=== PATIENT | male | born 1945 | race Two or more races ===

== ENCOUNTER 2018-05-10 18:59 | Emergency (ER) | payer OTHER ==
[~2018-05-10] VITALS: Ht 157.5 cm; Wt 69.9 kg
[2018-05-10] MEDS ORDERED: GABAPENTIN100 MG ORAL (19:10)
[2018-05-10] MEDS ORDERED: HYDRALAZINE HCL10 MG ORAL (19:10)
[2018-05-10] MEDS ORDERED: AMLODIPINE BES2.5 MG ORAL (19:10)
[2018-05-10] MEDS ORDERED: Morphine Sulfate 4mg/ml Inj IVP ONE (19:30)
[2018-05-10] MEDS ORDERED: Gastrograffin 30ml ORAL PRN (19:30)
[2018-05-10] MEDS ORDERED: Isovue-300 100ml vial INJ PRN (19:30)
--- NOTE | 2018-05-10 19:39 | Emergency Room Report ---
History of Present Illness General Chief Complaint: Abdominal Pain Source: Patient, EMS (Chris Beverly M.D.) Present Illness HPI Patient presents with right lower quadrant abdominal pain. He states it's milligram for 6 days. I denies any fevers or chills. He sometimes has pain like this when he has constipation which is frequently. This is more severe at this time. He denies any nausea vomiting. He did pass some stool earlier this morning. Says it was just drops of liquid. He does not make urine anymore. He rates the pain at 9/10 at this time and constant. It radiates somewhat towards his back. The patient is a dialysis patient. He had dialysis earlier today and there were no problems with that. H/O HTN. (Chris Beverly M.D.) Allergies: Coded Allergies: No Known Allergies (Unverified , 05/10/18) Patient History Past Medical History: see triage record Past Surgical History: kenyetta, other - Fistula Social History: Denies: smoking, alcohol use, drug use Social History Narrative with family Reviewed Nursing Documentation: PMH: Agreed; PSxH: Agreed (Chris Beverly M.D.) Nursing Documentation-PMH Hx Hypertension: Yes Hx Diabetes: Yes Hx Dialysis: Yes - MWF (Chris Beverly M.D.) Review of Systems All Other Systems: negative except mentioned in HPI (Chris Beverly M.D.) Physical Exam Vital Signs Date Time Temp Pulse Resp B/P (MAP) Pulse Ox O2 Delivery O2 Flow Rate FiO2 05/10/18 19:04 98.2 71 16 152/69 98 Room Air 98.2 Sp02 EP Interpretation: reviewed, normal General Appearance: well appearing, no apparent distress, GCS 15 Head: normocephalic, atraumatic Eyes: bilateral eye normal inspection, bilateral eye PERRL ENT: moist mucus membranes Neck: supple Respiratory: lungs clear, normal breath sounds Cardiovascular #1: regular rate, rhythm Cardiovascular #2: 2+ radial (R), 2+ radial (L) - fistula L upper arm Gastrointestinal: normal inspection, normal bowel sounds, no mass, non- distended, no rebound, guarding - RLQ, tenderness Genitourinary: no CVA tenderness Musculoskeletal: back normal, gait/station normal, normal range of motion Neurologic: alert, oriented x3, grossly normal - hard of hearing Skin: normal inspection, warm/dry (Chris Beverly M.D.) Medical Decision Making Diagnostic Impression: Primary Impression: Abdominal pain Qualified Codes: R10.31 - Right lower quadrant pain Additional Impression: ESRD (end stage renal disease) on dialysis ER Course Patient presents with abdominal pain in the right lower quadrant. Differential includes diverticulitis, appendicitis, renal stone, urinary tract infection amongst others. He does not make urine at this time. Evaluation will be with labs and CT also an EKG will be done and a chest x-ray to exclude cardiac cause. The patient will receive analgesia. EKG without injury. CXR with L effusion and inc cor. WBC normal. ESRD, After morphine, pain now 05/16 and still with R flank/RLQ guarding. Await CT scan. Benadryl given for itching post morphine. Signed out to Dr. Gamez. Laboratory Tests Test 05/10/18 19:40 White Blood Count 8.4 K/UL (4.8-10.8) Red Blood Count 3.77 M/UL (4.70-6.10) L Hemoglobin 11.1 G/DL (14.2-18.0) L Hematocrit 34.1 % (42.0-52.0) L Mean Corpuscular Volume 90 FL (80-99) Mean Corpuscular Hemoglobin 29.3 PG (27.0-31.0) Mean Corpuscular Hemoglobin Concent 32.4 G/DL (32.0-36.0) Red Cell Distribution Width 16.1 % (11.6-14.8) H Platelet Count 241 K/UL (150-450) Mean Platelet Volume 7.9 FL (6.5-10.1) Neutrophils (%) (Auto) 77.3 % (45.0-75.0) H Lymphocytes (%) (Auto) 8.7 % (20.0-45.0) L Monocytes (%) (Auto) 8.7 % (1.0-10.0) Eosinophils (%) (Auto) 3.3 % (0.0-3.0) H Basophils (%) (Auto) 2.1 % (0.0-2.0) H Prothrombin Time 11.8 SEC (9.30-11.50) H Prothrombin Time INR 1.1 (0.9-1.1) PTT 22 SEC (23-33) L Sodium Level 137 MMOL/L (136-145) Potassium Level 3.9 MMOL/L (3.5-5.1) Chloride Level 97 MMOL/L (98-107) L Carbon Dioxide Level 33 MMOL/L (21-32) H Anion Gap 7 mmol/L (5-15) Blood Urea Nitrogen 32 mg/dL (7-18) H Creatinine 5.8 MG/DL (0.55-1.30) H Estimate Glomerular Filtration Rate mL/min (>60) Glucose Level 165 MG/DL (74-106) H Calcium Level 8.7 MG/DL (8.5-10.1) Total Bilirubin 0.8 MG/DL (0.2-1.0) Aspartate Amino Transferase (AST) 49 U/L (15-37) H Alanine Aminotransferase (ALT) 50 U/L (12-78) Alkaline Phosphatase 174 U/L (46-116) H Total Creatine Kinase 78 U/L (26-308) Troponin I 0.046 ng/mL (0.000-0.056) Total Protein 8.2 G/DL (6.4-8.2) Albumin 3.2 G/DL (3.4-5.0) L Globulin 5.0 g/dL Albumin/Globulin Ratio 0.6 (1.0-2.7) L Lipase 134 U/L (73-393) (Chris Beverly M.D.) ER Course Patient was endorsed to me by Dr. Beverly. CT the abdomen pelvis showed evidence of pleural effusion as well as fluid near the liver tip. The cholecystectomy was present. There are no secondary signs of appendicitis.The patient was discussed with Dr. Marquez who agreed to accept the patient in transfer. (Deshawn Gamez MD) EKG Diagnostic Results Rate: normal Rhythm: NSR ST Segments: no acute changes (Chris Beverly M.D.) Rhythm Strip Diag. Results EP Interpretation: yes Rhythm: NSR, no PVC's, no ectopy (Chris Beverly M.D.) Chest X-Ray Diagnostic Results Chest X-Ray Diagnostic Results : Chest X-Ray Ordered: Yes # of Views/Limited/Complete: 1 View Indication: Other EP Interpretation: Yes Interpretation: no consolidation, no pneumothorax, other - cardiomegally and L effusion Impression: Other Electronically Signed by: Electronically signed by Chris Beverly MD (Chris Beverly M.D.) Last Vital Signs Date Time Temp Pulse Resp B/P (MAP) Pulse Ox O2 Delivery O2 Flow Rate FiO2 05/10/18 23:39 97.7 67 15 136/65 97 Room Air 97.7 Status: improved (Chris Beverly M.D.) Status: improved (Deshawn Gamez MD) Disposition: XFER SHT-TRM HOSP Condition: Serious Referrals: [facility],REFERRING (PCP) Chris Beverly M.D. May 10, 2018 19:39 Deshawn Gamez MD May 10, 2018 22:54
[2018-05-10 19:51] LABS: BASOPHILS % (AUTO) 2.1 % (0.0-2.0); EOSINOPHILS % (AUTO) 3.3 % (0.0-3.0); HEMATOCRIT 34.1 % (42.0-52.0); HEMOGLOBIN 11.1 G/DL (14.2-18.0); LYMPHOCYTES % (AUTO) 8.7 % (20.0-45.0); MEAN CORPUSCULAR VOLUME 90 FL (80-99); MONOCYTES % (AUTO) 8.7 % (1.0-10.0); NEUTROPHILS % (AUTO) 77.3 % (45.0-75.0); PLATELET COUNT 241 K/UL (150-450); RED BLOOD COUNT 3.77 M/UL (4.70-6.10); RED CELL DISTRIBUTION WIDTH 16.1 % (11.6-14.8); WHITE BLOOD COUNT 8.4 K/UL (4.8-10.8)
[2018-05-10 20:00] VITALS: BP 150/72
[2018-05-10 20:01] LABS: ANION GAP 7 mmol/L (5-15); BLOOD UREA NITROGEN 32 mg/dL (7-18); CALCIUM 8.7 MG/DL (8.5-10.1); CARBON DIOXIDE 33 MMOL/L (21-32); CHLORIDE 97 MMOL/L (98-107); CREATININE 5.8 MG/DL (0.55-1.30); INR 1.1 (0.9-1.1); POTASSIUM 3.9 MMOL/L (3.5-5.1); SODIUM 137 MMOL/L (136-145)
[2018-05-10 20:06] LABS: ALANINE AMINOTRANSFERASE 50 U/L (12-78); ALBUMIN 3.2 G/DL (3.4-5.0); ALBUMIN/GLOBULIN RATIO 0.6 (1.0-2.7); ALKALINE PHOSPHATASE 174 U/L (46-116); ASPARTATE AMINO TRANSFERASE 49 U/L (15-37); BILIRUBIN,TOTAL 0.8 MG/DL (0.2-1.0); CREATINE KINASE 78 U/L (26-308)
[2018-05-10] MEDS ORDERED: DiphenhydrAMINE 50mg/ml Inj IVP ONE (21:30)
[2018-05-10 22:20] VITALS: BP 139/68
[2018-05-10 23:31] VITALS: BP 136/65
[2018-05-10 23:39] VITALS: BP 136/65
--- NOTE | 2018-05-11 09:50 | Diagnostic Imaging Report ---
Indication: Trauma pain Technique: CT of the abdomen and pelvis utilizing automated exposure control with intravenous contrast. Venous scanning performed. Axial, sagittal and coronal reformats presented. CT dose: Total DLP 568.76 mGycm; CTDI vol 11.53 mGy Comparison: None Findings: Small left and trace right pleural effusions with adjacent atelectasis/consolidation in the bilateral lower lobes, left greater than right. No pneumothorax. Heart is enlarged. There is trace pericardial fluid. Liver contour is smooth. No focal hepatic mass lesion is appreciated on this single phase study. Evidence of prior cholecystectomy. Spleen, adrenal glands and pancreas grossly unremarkable. Bilateral kidneys are atrophic, right greater than left. No hydronephrosis or appreciable renal stone. There is marked thickening of the bladder wall with some possible subtle surrounding inflammatory change. Prostate appears borderline enlarged. There is no free intraperitoneal air. There is trace fluid adjacent to the inferior tip of the liver, this is nonspecific. There is no evidence of bowel obstruction. Appendix not definitively visualized however there are no focal inflammatory changes in the right lower quadrant to suggest acute appendicitis. There is a hiatal hernia. The lower esophagus is patulous and some residual contrast is noted in the esophagus. Abdominal aorta is normal in caliber with atherosclerotic calcification. No pathologically enlarged lymphadenopathy is appreciated. There are degenerative changes of the spine. No acute osseous abnormality seen. IMPRESSION: * Confidential thickening of the wall of the urinary bladder with mild surrounding inflammatory change. Correlation with urinalysis recommended to assess for possible cystitis. * Hiatal hernia with contrast noted in a patulous distal esophagus. This is considered a risk for aspiration. * Atrophic kidneys. * Appendix not definitively identified. No secondary signs to suggest acute appendicitis. * Small left and trace right pleural effusions with adjacent atelectasis or consolidation in the bilateral lower lobes, left greater than right. Pneumonia should be excluded clinically. * Cardiomegaly. * Trace pericardial effusion. * Small amount of fluid adjacent to the inferior tip of the liver of uncertain etiology and clinical significance. This corresponds with the statrad preliminary report. The CT scanner at [facility] is accredited by the [employer] and the scans are performed using protocols designed to limit radiation exposure to as low as reasonably achievable to attain images of sufficient resolution adequate for diagnostic evaluation.
--- NOTE | 2018-05-11 11:22 | Diagnostic Imaging Report ---
Indication: Abdominal pain Technique: XRAY Chest 1v Comparison: None Findings: Patient rotated to the right. Heart is enlarged. There is patchy left basilar opacity and blunting of the left costophrenic sulcus. No pneumothorax. Degenerative changes of the spine. No acute osseous abnormality. IMPRESSION: Exam due to suboptimal patient positioning (rotation). Within these limitations: * Cardiomegaly. * Small left pleural effusion and adjacent left basilar opacities, likely compressive atelectasis. Pneumonia should be excluded clinically.
--- NOTE | 2018-05-12 00:36 | Cardiology Report ---
APPROVED REPORT EKG Measurement Heart [id number] TN [id number] [id number] Normal sinus rhythm Voltage criteria for LVH Abnormal ECG
== END 2018-05-10 23:39 | disposition short-term general hospital (02) ==
LOC: EDBD 18:59 → EMR 19:34
DX: I12.0 Hypertensive chronic kidney disease with stage 5 chronic kidney disease or end stage renal disease (principal); N18.6 End stage renal disease; Z99.2 Dependence on renal dialysis; E11.9 Type 2 diabetes mellitus without complications; K44.9 Diaphragmatic hernia without obstruction or gangrene; I51.7 Cardiomegaly; J90 Pleural effusion, not elsewhere classified
CPT/HCPCS: 36415; 71045; 74177; 80053; 82550; 83690; 84484; 85025; 85610; 85730; 86850; 86900; 86901; 93005; 96374; 96375; 99284; J1200; J2270; J2405; Q9967